=== PATIENT | female | born 1950 | race Caucasian/White ===

== ENCOUNTER 2019-03-14 12:48 | Emergency (ER) | payer MEDICARE, SELFPAY ==
[~2019-03-14] VITALS: Ht 165.1 cm; Wt 75.0 kg
--- NOTE | 2019-03-14 13:28 | NUR ---
PT YANETH VELASCO FROM [facility] FOR SOB- WAS 80% ON RA AT . CURRENY ON 2L NC SATTING AT 95%. WAS GIVEN 1 ALBUTEROL TREATMENT ON AMBULANCE. EKG WAS NEGATIVE. NO PIV STARTED. PT RESTING ON GURNEY. AMBULATORY WITH STEADY GAIT. BSC IN ROOM, PT HAS VOIDED X1 SINCE ARRIVAL. PT DENIES CP, DENIES N/V. VSS.
--- NOTE | 2019-03-14 13:37 | NUR ---
PT CONNECTED TO MONITOR. CALL LIGHT IN REACH. PT IS SPEAKING IN FULL SENTENCES.
--- NOTE | 2019-03-14 13:53 | NUR ---
MD RESIDENT AT BEDSIDE ASSESSING PT NOW.
[2019-03-14] MEDS ORDERED: ALBUTEROL/IPRATROPIUM 2.5MG/0.5MG, 3 ML NPPB ONE (14:30)
[2019-03-14] MEDS ORDERED: SODIUM CHLORIDE FLUSH 10ML SYR IVF ONE (14:30)
--- NOTE | 2019-03-14 14:31 | NUR ---
PIV STARTED. BLOOD DRAWN. PT RESTING ON GURNEY. AWARE OF POC. NADN. VSS. DENIES NEEDS.
[2019-03-14 14:32] VITALS: BP 152/74
[2019-03-14 14:43] LABS: BASOPHILS # (AUTO) 0.04 x10^3/uL (0-0.1); BASOPHILS % (AUTO) 0 % (0-1); EOSINOPHILS # (AUTO) 0.17 x10^3/uL (0-0.4); EOSINOPHILS % (AUTO) 2 % (1-7); LYMPHOCYTES # (AUTO) 0.98 x10^3/uL (1-3.4); LYMPHOCYTES % (AUTO) 11 % (22-44); MD NO; MEAN CORPUSCULAR HEMOGLOBIN 31.9 pg (27.0-34.8); MEAN CORPUSCULAR HGB CONC 33.3 g/dL (32.4-35.8); MEAN CORPUSCULAR VOLUME 95.7 fL (80-100); MEAN PLATELET VOLUME 7.6 fL (7.4-10.4); MONOCYTES # (AUTO) 0.44 x10^3/uL (0.2-0.8); MONOCYTES % (AUTO) 5 % (2-9); NEUTROPHILS # (AUTO) 7.02 x10^3/uL (1.8-6.8); NEUTROPHILS % (AUTO) 81 % (42-75); PLATELET COUNT 295 x10^3/uL (130-400); RED BLOOD COUNT 4.86 x10^6/uL (3.82-5.3); RED CELL DISTRIBUTION WIDTH 13.9 % (9.6-15.2)
--- NOTE | 2019-03-14 14:43 | NUR ---
RESPIRATORY THERAPY CALLED NOW. STATES SHE IS ON HER WAY.
--- NOTE | 2019-03-14 14:49 | NUR ---
RADIOLOGY AT BEDSIDE NOW.
[2019-03-14 14:51] LABS: ALANINE AMINOTRANSFERASE 18 U/L (12-78); ALBUMIN 3.8 g/dL (3.4-5.0); ANION GAP 8 mmol/L (5-15); CALCIUM 9.1 mg/dL (8.5-10.1); CHLORIDE 110 mmol/L (98-107)
[2019-03-14 14:56] LABS: ALKALINE PHOSPHATASE 60 U/L (45-117); BILIRUBIN,TOTAL 0.6 mg/dL (0.2-1.0); CREATININE 0.79 mg/dL (0.55-1.02); TOTAL PROTEIN 7.7 g/dL (6.4-8.2); TROPONIN I < 0.015 ng/mL (0.000-0.045)
[2019-03-14] MEDS ORDERED: ALBUTEROL/IPRATROPIUM 2.5MG/0.5MG, 3 ML ONE (14:57)
--- NOTE | 2019-03-14 14:58 | NUR ---
RT AT BEDSIDE NOW.
--- NOTE | 2019-03-14 15:29 | NUR ---
PT AWARE OF DC PLAN. PIV REMOVED. 92% ON RA. GETTING DRESSED NOW.
--- NOTE | 2019-03-14 15:35 | NUR ---
PT MEDICATED PER EMAR.
== END 2019-03-14 15:40 | disposition home or self-care (01) ==
LOC: ED 15:30
DX: J98.11 Atelectasis (principal); R73.03 Prediabetes
CPT/HCPCS: 36415; 71045; 80053; 83880; 84484; 85025; 93005; 94640; 99284; J7512; J7620

== ENCOUNTER → 2019-09-24 | Outpatient (CLI) | payer MEDICARE ==
[2019-09-24 12:28] LABS: MICROSCOPIC NOT IND
[2019-09-24 12:33] LABS: BASOPHILS # (AUTO) 0.04 x10^3/uL (0-0.1); BASOPHILS % (AUTO) 1 % (0-1); EOSINOPHILS # (AUTO) 0.26 x10^3/uL (0-0.4); EOSINOPHILS % (AUTO) 5 % (1-7); LYMPHOCYTES # (AUTO) 1.34 x10^3/uL (1-3.4); LYMPHOCYTES % (AUTO) 23 % (22-44); MD NO; MEAN CORPUSCULAR HEMOGLOBIN 30.8 pg (27.0-34.8); MEAN CORPUSCULAR HGB CONC 32.2 g/dL (32.4-35.8); MEAN CORPUSCULAR VOLUME 95.7 fL (80-100); MONOCYTES # (AUTO) 0.39 x10^3/uL (0.2-0.8); MONOCYTES % (AUTO) 7 % (2-9); NEUTROPHILS # (AUTO) 3.81 x10^3/uL (1.8-6.8); NEUTROPHILS % (AUTO) 65 % (42-75); PLATELET COUNT 270 x10^3/uL (130-400); RED BLOOD COUNT 4.71 x10^6/uL (3.82-5.3)
[2019-09-24 16:17] LABS: CHLORIDE 108 mmol/L (98-107)
[2019-09-24 16:37] LABS: ALANINE AMINOTRANSFERASE 22 U/L (12-78); ALBUMIN 3.7 g/dL (3.4-5.0); ALKALINE PHOSPHATASE 56 U/L (45-117); ANION GAP 5 mmol/L (5-15); BILIRUBIN,TOTAL 0.7 mg/dL (0.2-1.0); CALCIUM 8.3 mg/dL (8.5-10.1); CHOLESTEROL, TOTAL 194 mg/dL (140-239); CREATININE 0.74 mg/dL (0.55-1.02); HDL CHOL % 34 % (28-40); HDL CHOLESTEROL (DIRECT) 65 mg/dL (40-60); LDL CHOLESTEROL,CALCULATED 107 mg/dL (54-169); LDL/HDL RATIO 1.6 (0.5-3.0); TOTAL PROTEIN 7.2 g/dL (6.4-8.2); TRIGLYCERIDES 109 mg/dL (50-200); VLDL CHOLESTEROL 22 mg/dL (0-25)
== END | disposition home or self-care (01) ==
LOC: CFH 07:49
PROVIDERS: ATTEND Family Medicine
DX: Z09 Encounter for follow-up examination after completed treatment for conditions other than malignant neoplasm (principal); E03.9 Hypothyroidism, unspecified; E78.2 Mixed hyperlipidemia; R35.8 Other polyuria; D64.9 Anemia, unspecified
CPT/HCPCS: 36415; 80053; 80061; 81003; 84443; 85025